=== PATIENT | male | born 1995 | race Caucasian/White ===

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

== ENCOUNTER 2017-08-18 00:25 | Emergency (ER) | payer BC, OTHER ==
[~2017-08-18] VITALS: Ht 185.4 cm; Wt 64.1 kg
[~2017-08-18 00:25] MED LIST: IBUP-1050 PO
[2017-08-18 00:26] VITALS: Ht 185.4 cm; Wt 64.1 kg
[2017-08-18 00:35] VITALS: TEMP 36.6
[2017-08-18] MEDS ORDERED: ONDANSETRON INJ 2 MG/ML 2 ML VIAL IV STA (00:38)
[2017-08-18] MEDS ORDERED: SODIUM CHLORIDE 0.9% 1000ML 1,000 ML IV ONE ×2 (00:45)
[2017-08-18 00:51] LABS: BASO % 0.1 %; BASO ABS # 0.01 K/uL (0-0.2); EOS % 0.1 %; EOS ABS # 0.01 K/uL (0-0.5); HEMATOCRIT 44.8 % (42-52); HEMOGLOBIN 16.8 g/dL (14.0-18.0); IG# 0.07 K/uL (0.00-0.02); LYMPH % 5.5 %; LYMPH ABS # 1.03 K/uL (1.2-3.4); MEAN CELL VOLUME 86.7 fL (80-100); MEAN CORPUSCULAR HEMOGLOBIN 32.5 pg (25-34); MEAN CORPUSCULAR HGB CONC 37.5 g/dl (32-36); MEAN PLATELET VOLUME 10.9 fL (7.4-10.4); MONO % 5.1 %; MONO ABS # 0.97 K/uL (0.11-0.59); NEUT % 88.8 %; NEUT ABS # 16.79 K/uL (1.4-6.5); PLATELET COUNT 200 K/uL (130-400); RED CELL DISTRIBUTION WIDTH CV 12.6 % (11.5-14.5); RED CELL DISTRIBUTION WIDTH SD 40.4 fL (36.4-46.3); WHITE BLOOD COUNT 18.88 K/uL (4.8-10.8)
[2017-08-18 01:15] LABS: ALBUMIN 4.6 gm/dl (3.4-5.0); CALCIUM 9.9 mg/dl (8.5-10.1); CREATININE 1.01 mg/dl (0.60-1.40); POTASSIUM 3.2 mmol/L (3.5-5.1)
[2017-08-18 01:16] LABS: TOTAL PROTEIN 8.2 gm/dl (6.4-8.2)
[2017-08-18] MEDS ORDERED: ACETAMINOPHEN 1000 MG/100 ML IV IV ONE (01:27)
[2017-08-18] MEDS ORDERED: ACETAMINOPHEN IV 1,000 MG in EMPTY BAG 0 ML IV ONE (01:30)
[2017-08-18] MEDS ORDERED: ONDANSETRON HOME PACK 4MG OD TAB PO ONE (03:30)
[2017-08-18 03:32] VITALS: BP 145/71; PULSE 93; O2SAT 97
--- NOTE | 2017-08-18 06:44 | DIAGNOSTIC IMAGING REPORT ---
ABDOMEN 2VIEW W/PA CHEST RTN CLINICAL HISTORY: Nausea, vomiting, abdominal cramping. COMPARISON STUDY: No previous studies for comparison. FINDINGS: The erect chest reveals no evidence of free air. There is no evidence of focal pulmonary consolidation.] Erect and supine views of the abdomen reveal no abnormally dilated loops of large or small bowel. There are no transition zone to indicate bowel obstruction. There is a punctate calcification projected of the left kidney suspicious for a calculus. IMPRESSION: 1. No evidence of bowel obstruction. No evidence of free air 2. Suspected left-sided nephrolithiasis Electronically signed by: Lito Lange M.D. 08/18/2017 6:43 AM Dictated Date/Time: 08/18/2017 6:42 AM
--- NOTE | 2017-08-18 23:12 | EMERGENCY ROOM VISIT NOTE ---
History First contact with patient: 00:32 Chief Complaint: ABDOMINAL PAIN Stated Complaint: VOMITING,STOMACH PAIN Nursing Triage Summary: diffuse abd pain and vomiting x 2 hours. History of Present Illness The patient is a 22 year old male who presents to the Emergency Room with complaints of nausea, vomiting, and abdominal cramping that began 2 hours ago. The patient states that he ate pizza tonight for dinner just before the episode began. He initially had frequent emesis, but now it is watery. He is not having diarrhea. His abdominal pain worsens just before vomiting. The patient has not had fever or chills. No recent travel history. No known exposure to disease. He rates his discomfort in 12/09. Review of Systems More than 10 systems were reviewed and otherwise negative with the exception of history of present illness. Past Medical/Surgical History Medical Problems: (1) No Known Active Medical Problems Family History No pertinent family history Social History Smoking Status: Never Smoker Housing Status: lives with family Occupation Status: student Current/Historical Medications No Active Prescriptions or Reported Meds Physical Exam Vital Signs Date Time Temp Pulse Resp B/P (MAP) Pulse Ox O2 Delivery O2 Flow Rate FiO2 08/18/17 03:32 93 16 145/71 97 Room Air 08/18/17 01:20 48 16 135/81 99 Room Air 08/18/17 00:35 36.6 08/18/17 00:26 86 18 135/80 99 Room Air Physical Exam VITALS: Vitals are noted on the nurse's note and reviewed by myself. Vital signs stable. GENERAL: White male who appears pale and is actively vomiting on my arrival to the room MOUTH: Mucous membranes moist. Tonsils are not enlarged. Pharynx without erythema, blood, or exudate. Uvula midline. Airway patent. NECK: Supple without nuchal rigidity. No lymphadenopathy. No thyromegaly. Cervical spine is nontender. HEART: Regular rate and rhythm without murmurs gallops or rubs. LUNGS: Clear to auscultation bilaterally without wheezes, rales or rhonchi. No retractions or accessory muscle use. ABDOMEN: Positive normal bowel sounds x 4. Soft, nontender, without masses or organomegaly. No guarding or rebound tenderness. Medical Decision & Procedures ER Provider Diagnostic Interpretation: ABDOMEN 2VIEW W/PA CHEST RTN CLINICAL HISTORY: Nausea, vomiting, abdominal cramping. COMPARISON STUDY: No previous studies for comparison. FINDINGS: The erect chest reveals no evidence of free air. There is no evidence of focal pulmonary consolidation.] Erect and supine views of the abdomen reveal no abnormally dilated loops of large or small bowel. There are no transition zone to indicate bowel obstruction. There is a punctate calcification projected of the left kidney suspicious for a calculus. IMPRESSION: 1. No evidence of bowel obstruction. No evidence of free air 2. Suspected left-sided nephrolithiasis Laboratory Results 08/18/17 00:40 Red Blood Count 5.17, Mean Corpuscular Volume 86.7, Mean Corpuscular Hemoglobin 32.5, Mean Corpuscular Hemoglobin Concent 37.5, Mean Platelet Volume 10.9, Neutrophils (%) (Auto) 88.8, Lymphocytes (%) (Auto) 5.5, Monocytes (%) (Auto) 5.1, Eosinophils (%) (Auto) 0.1, Basophils (%) (Auto) 0.1, Neutrophils # (Auto) 16.79, Lymphocytes # (Auto) 1.03, Monocytes # (Auto) 0.97, Eosinophils # (Auto) 0.01, Basophils # (Auto) 0.01 08/18/17 00:40 Test 08/18/17 00:40 08/18/17 01:56 White Blood Count 18.88 K/uL (4.8-10.8) Red Blood Count 5.17 M/uL (4.7-6.1) Hemoglobin 16.8 g/dL (14.0-18.0) Hematocrit 44.8 % (42-52) Mean Corpuscular Volume 86.7 fL (80-100) Mean Corpuscular Hemoglobin 32.5 pg (25-34) Mean Corpuscular Hemoglobin Concent 37.5 g/dl (32-36) Platelet Count 200 K/uL (130-400) Mean Platelet Volume 10.9 fL (7.4-10.4) Neutrophils (%) (Auto) 88.8 % Lymphocytes (%) (Auto) 5.5 % Monocytes (%) (Auto) 5.1 % Eosinophils (%) (Auto) 0.1 % Basophils (%) (Auto) 0.1 % Neutrophils # (Auto) 16.79 K/uL (1.4-6.5) Lymphocytes # (Auto) 1.03 K/uL (1.2-3.4) Monocytes # (Auto) 0.97 K/uL (0.11-0.59) Eosinophils # (Auto) 0.01 K/uL (0-0.5) Basophils # (Auto) 0.01 K/uL (0-0.2) RDW Standard Deviation 40.4 fL (36.4-46.3) RDW Coefficient of Variation 12.6 % (11.5-14.5) Immature Granulocyte % (Auto) 0.4 % Immature Granulocyte # (Auto) 0.07 K/uL (0.00-0.02) Anion Gap 9.0 mmol/L (3-11) Est Creatinine Clear Calc Drug Dose 105.8 ml/min Estimated GFR () 123.5 Estimated GFR (Non- 106.6 BUN/Creatinine Ratio 13.8 (10-20) Calcium Level 9.9 mg/dl (8.5-10.1) Total Bilirubin 2.2 mg/dl (0.2-1) Aspartate Amino Transf (AST/SGOT) 18 U/L (15-37) Alanine Aminotransferase (ALT/SGPT) 28 U/L (12-78) Alkaline Phosphatase 81 U/L (45-117) Total Protein 8.2 gm/dl (6.4-8.2) Albumin 4.6 gm/dl (3.4-5.0) Globulin 3.6 gm/dl (2.5-4.0) Albumin/Globulin Ratio 1.3 (0.9-2) Lipase 102 U/L (73-393) Urine Color DK YELLOW Urine Appearance CLEAR (CLEAR) Urine pH 6.0 (4.5-7.5) Urine Specific [place] 1.026 (1.000-1.030) Urine Protein NEG (NEG) Urine Glucose (UA) NEG (NEG) Urine Ketones 4+ (NEG) Urine Occult Blood NEG (NEG) Urine Nitrite NEG (NEG) Urine Bilirubin NEG (NEG) Urine Urobilinogen NEG (NEG) Urine Leukocyte Esterase NEG (NEG) Medications Administered Medications (Trade) Dose Ordered Sig/Luis Route Start Time Stop Time Status Last Admin Dose Admin Sodium Chloride 1,000 ml @ 999 mls/hr Q1H1M ONCE IV 08/18/17 00:45 08/18/17 01:45 DC 4/19/18 00:50 999 MLS/HR Sodium Chloride 1,000 ml @ 999 mls/hr Q1H1M ONCE IV 08/18/17 00:45 08/18/17 01:45 DC 08/18/17 00:51 999 MLS/HR Ondansetron HCl (Zofran Inj) 8 mg NOW STAT IV 08/18/17 00:38 08/18/17 00:40 DC 08/18/17 00:50 8 MG Acetaminophen (Ofirmev Iv) 1,000 mg STK-MED ONCE IV 08/18/17 01:27 08/18/17 01:28 DC 08/18/17 01:31 1,000 MG Ondansetron HCl (ZOFRAN ODT 4MG Home Pack) 1 homepack UD ONCE PO 08/18/17 03:30 08/18/17 03:31 DC 08/18/17 03:42 1 HOMEPACK ED Course Physical exam and history were performed. Nursing notes, EMR, and Medication List were personally reviewed. Patient appears to have nausea and vomiting for the past 2 hours after eating dinner. The patient was actively vomiting upon my arrival to the room. IV access was established and labs were obtained. He was hydrated with 2 L normal saline and given 8 mg IV Zofran. Abdominal films were gathered. The patient's blood work is as above and was reviewed. He does have an elevated white blood cell count of over 18,000 which is felt to be from his vomiting. He does not have a significant anemia or gross electrolyte imbalance. Transaminases are not diagnostic. X-ray was reviewed by myself and radiology as showing no significant acute process. On reevaluation after a few hours of stay here in the ER the patient looked significantly improved. The color of his skin had returned and he was able to tolerate ice chips. He was tired and reported feeling significantly improved. Overall the patient does seems well for discharge home. I suspect his symptoms are likely viral or foodborne in nature. He will be given a home pack of Zofran as well as conservative care measures. He was asked to follow with his PCP with any ongoing or persisting symptoms, and was invited back to the ER anytime. The chart was completed utilizing [employer] Voice Recognition Software. Grammatical errors, random word insertions, pronoun errors, and incomplete sentences are an occasional consequence of this system due to software limitations, ambient noise, and hardware issues. Any formal questions or concerns about the content, text, or information contained within the body of this dictation should be directly addressed to the provider for clarification. . Medical Decision Differential diagnosis: Etiologies such as gastroenteritis, food borne illness, infections, appendicitis , diverticulitis, inflammatory bowel disease, obstruction, GI bleed, biliary pathology, as well as others were entertained. Impression Primary Impression: Nausea and vomiting Departure Information Dispostion Home / Self-Care Condition GOOD Prescriptions No Active Prescriptions or Reported Meds Forms HOME CARE DOCUMENTATION FORM, IMPORTANT VISIT INFORMATION Patient Instructions [facility], ED Diet [place] Additional Instructions You were seen and evaluated today on an emergency basis only. This is not a substitute for, or an effort to provide, complete comprehensive medical care. It is not possible to recognize and treat all injuries or illnesses in a single emergency department visit. For this reason it is recommended that you followup with your primary care physician next week with any ongoing or persisting symptoms. Take Zofran 4 mg ODT every 6 hours as needed for nausea or vomiting. Drink plenty of fluids and remain well-hydrated. You are welcome to return to the emergency department anytime with new, worsening, or concerning symptoms.
== END 2017-08-18 03:48 | disposition home or self-care (01) ==
LOC: C.EDB 00:25
DX: R11.2 Nausea with vomiting, unspecified (principal)

== ENCOUNTER 2022-12-13 03:36 | Observation (INO) ==
[2022-12-13] MEDS ORDERED: ONDANSETRON INJ 2 MG/ML 2 ML VIAL IV STA (03:46)
[2022-12-13] MEDS ORDERED: SODIUM CHLORIDE 0.9% 1000ML 1,000 ML IV STA (03:46)
[2022-12-13] MEDS ORDERED: ACETAMINOPHEN 1,000 MG/100 ML VIAL IV STA (03:51)
--- NOTE | 2022-12-13 03:55 | Emergency Department Note ---
History of Present Illness General Chief complaint: Abdominal Pain Stated complaint: ABDOMINAL PAIN, VOMITING Time Seen by Provider: 12/13/22 03:46 History of Present Illness Maximum Pain Intensity: 7 This 27-year-old male presents the ER complaining of nausea vomiting and abdominal pain for the past day. Patient denies chest pain, dyspnea, flank pain, penile pain, urinary symptoms, diarrhea. No prior abdominal surgeries. Allergies Allergy/AdvReac Type Severity Reaction Status Date / Time No Known Allergies Allergy Unverified 11/13/17 23:51 Past Med/Surg History Social History Smoking Status: Current every day smoker Preferred Language: Mexican Feels Safe at Home: Yes Review of Systems A total of 10 systems reviewed and were otherwise negative Physical Exam Vital Signs Vital Signs - 24 hr 12/13/22 03:43 Temperature 36.7 C Temperature Source Temporal Artery Scan Pulse Rate 51 L Respiratory Rate 16 Respiratory Depth Normal Blood Pressure 140/87 Blood Pressure Mean 104 Pulse Oximetry 100 Oxygen Delivery Method Room Air Sepsis Recent Fever Within 48 Hours No Sepsis New/Unexplained Change in Mental Status N/A Sepsis Action Taken by Nursing No Action Required VITALS: Vitals are noted on the nurse's note and reviewed by myself. Vital signs stable. GENERAL: White male with mother present, in no acute distress, nondiaphoretic, well-developed well-nourished. SKIN: The skin was without rashes, erythema, edema, or bruising. There is no tenting of the skin. Capillary reflex less than 2 seconds. HEAD: Normocephalic atraumatic. EARS: External auditory canals clear, EYES: Pupils equal round and reactive to light and accommodation. Conjunctivae without injection, sclerae without icterus. Extraocular movements intact. NOSE: Patent, turbinates without inflammation or discharge. MOUTH: Mucous membranes moist. Pharynx without erythema or exudate. Uvula midline. Airway patent. Tongue does not deviate. NECK: Supple without nuchal rigidity. No lymphadenopathy. No thyromegaly. Cervical spine is nontender. No JVD. HEART: Regular rate and rhythm LUNGS: Clear to auscultation bilaterally without wheezes, rales or rhonchi. No retractions or accessory muscle use. ABDOMEN: Positive bowel sounds x 4. Normal tympanic percussion. Soft, diffusely tender to palpation, without masses or organomegaly. Martin sign negative. No guarding or rebound tenderness. No CVA tenderness MUSCULOSKELETAL: No muscle atrophy, erythema, or edema noted. NEURO: Patient was alert and oriented to person place and time. Normal sensation to light and sharp touch. No focal neurological deficits. Course Administered Medications Discontinued Medications Sodium Chloride (Nss 1000ml) 1,000 mls @ 999 mls/hr IV .Q1H1M STA Stop: 12/13/22 04:46 Last Infusion: 12/13/22 05:09 Dose: 0 mls/hr Documented By: MARIA ALEJANDRA Admin: 12/13/22 04:04 Dose: 999 mls/hr Documented By: MARIA ALEJANDRA Acetaminophen (Ofirmev) 1,000 mg in 100 mls @ 400 mls/hr IV NOW STA Stop: 12/13/22 04:05 Last Infusion: 12/13/22 04:28 Dose: 0 mls/hr Documented By: MARIA ALEJANDRA Admin: 12/13/22 04:04 Dose: 400 mls/hr Documented By: MARIA ALEJANDRA Ioversol (Optiray 320 100ml) 100 ml IV ONCE ONE Stop: 12/13/22 04:44 Last Admin: 12/13/22 04:44 Dose: 93 ml Documented By: JULIA Ondansetron HCl (Ondansetron Inj 2 Mg/Ml 2 Ml Vial) 4 mg IV NOW STA Stop: 12/13/22 03:47 Last Admin: 12/13/22 04:04 Dose: 4 mg Documented By: MARIA ALEJANDRA Medical Decision Making Medical Records Attestation: I reviewed the patient's medical records. Home Medications Current Medication List: was personally reviewed by me Laboratory Data Attestation: I reviewed the patient's lab results. 12/13/22 03:58 12/13/22 03:58 Lab Results 12/13/22 12/13/22 12/13/22 Range/Units 03:58 03:58 04:12 WBC 18.67 H (4.8-10.8) K/ul RBC 5.10 (4.70-6.10) M/uL Hgb 16.2 (14.0-18.0) g/dl POC Hgb 15.6 (14.0-18.0) g/dl Hct 44.8 (42.0-52.0) % POC Hct 46 (42-52) % MCV 87.8 (80.0-100.0) fL MCH 31.8 (25.0-34.0) pg MCHC 36.2 H (32.0-36.0) g/dL RDW Std Deviation 38.9 (36.4-46.3) fL RDW Coeff of Ruby 12.0 (11.5-14.5) % Plt Count 178 (130-400) K/uL MPV 10.9 (9.4-12.4) fL Immature Gran % (Auto) 0.7 % Neut % (Auto) 84.9 % Lymph % (Auto) 7.0 % Cocke % (Auto) 7.2 % Eos % (Auto) 0.1 % Baso % (Auto) 0.1 % Neut # (Auto) 15.86 H (1.40-6.50) K/uL Lymph # (Auto) 1.30 (1.2-3.4) K/uL Cocke # (Auto) 1.34 H (0.11-0.59) K/uL Eos # (Auto) 0.02 (0-0.50) K/uL Baso # (Auto) 0.02 (0-0.2) K/uL Immature Gran # (Auto) 0.13 (0.01-0.20) K/uL POC Sodium 138 (135-144) mmol/L Sodium 137 (136-145) mmol/L POC Potassium 3.8 (3.3-5.0) mmol/L Potassium 3.7 (3.5-5.1) mmol/L POC Chloride 100 L (101-112) mmol/L Chloride 101 (98-107) mmol/L Carbon Dioxide 26 (21-32) mmol/L POC Total CO2 24 (24-31) mmol/L Anion Gap 10 (3-11) POC Anion Gap 20.0 (16-25) mmol/L POC BUN 14 (7-18) mg/dl BUN 13 (6-23) mg/dl Creatinine 0.88 (0.6-1.4) mg/dl POC Creatinine 0.7 (0.6-1.3) mg/dl Est Cr Clr Drug Dosing Not Reportable Est GFR ( Amer) 138.4 ml/min Est GFR (Non-Af Amer) 119.4 ml/min BUN/Creatinine Ratio 14.8 (10-20) Glucose 170 H (70-99(Fasting)) mg/dl POC Glucose (other) 171 H (70-99) mg/dl Calcium 10.0 (8.6-10.3) mg/dl POC Ioniz Calcium [place]ton 1.19 (1.12-1.32) mmol/l Total Bilirubin 1.8 H (0.2-1.0) mg/dl AST 20 (13-39) U/L ALT 21 (7-52) U/L Alkaline Phosphatase 59 (34-104) U/L Total Protein 7.1 (6.0-8.3) gm/dl Albumin 4.4 (3.4-5.0) gm/dl Globulin 2.7 (2.5-4.0) gm/dl Albumin/Globulin Ratio 1.6 (0.9-2) Lipase 12 (11-82) U/L Imaging Data Attestation: I personally reviewed and interpreted this imaging study as follows: Radiologist's Impression: Abdomen/Pelvis CT 12/13/22 03:46 CR Exam(s): CT ABDOMEN + PELVIS With Contrast IV Amt: 93 ML OPTIRAY 320 EXAM: CT Abdomen and Pelvis With Intravenous Contrast CLINICAL HISTORY: Reason for exam: lower abd pain. TECHNIQUE: Axial computed tomography images of the abdomen and pelvis with intravenous contrast. CTDI is 8.39 mGy and DLP is 417.99 mGy-cm. Automated exposure control was utilized for the study. A dose lowering technique was utilized adhering to the principles of ALARA. CONTRAST: Patient received 93 ML OPTIRAY 320 of IV contrast COMPARISON: No relevant prior studies available. FINDINGS: ABDOMEN: Liver: Periportal edema within the liver. Gallbladder and bile ducts: Unremarkable. Pancreas: Unremarkable. Spleen: Unremarkable. Adrenals: Unremarkable. Kidneys and ureters: Unremarkable. No obstructing stones. No hydronephrosis. Stomach and bowel: Mucosal thickening within the pelvic small bowel likely reactive. PELVIS: Appendix: Acute appendicitis. The appendix is dilated up to 1.3 cm with mucosal thickening and hyperemia. Periappendiceal fat stranding present. No perforation or abscess. Bladder: Unremarkable. Reproductive: Unremarkable as visualized. ABDOMEN and PELVIS: Intraperitoneal space: Small amount of free fluid within the pelvis. No abscess. No free air. Bones/joints: No acute fracture. Soft tissues: Unremarkable. Vasculature: Unremarkable. Lymph nodes: Unremarkable. IMPRESSION: 1. Acute appendicitis. No perforation or abscess. 2. Mucosal thickening within the pelvic small bowel likely reactive. 3. Periportal edema within the liver. Most frequently seen in the setting of aggressive IV rehydration. Communications: Verify Receipt Electronically signed by: Chucky Saldaña MD 12/13/22 05:14 AM MDM Narrative Prior records/ancillary studies reviewed. Triage Nursing notes reviewed. Additional history obtained from the family. The patient's history was concerning for nausea, vomiting, and abdominal pain. Differential diagnosis: Etiologies such as gastroenteritis, food borne illness, infections, appendicitis, diverticulitis, inflammatory bowel disease, obstruction, GI bleed, biliary pathology, as well as others were entertained. Physical examination findings: As above. Abdominal examination revealed diffuse tenderness. Vital signs reviewed and revealed stable. ER treatment provided: IV hydration 1 L NSS. Zofran and Tylenol ordered patient was given Zosyn for appendicitis On reassessment the patient felt better. Patient was tolerating p.o. intake. Diagnostics interpretation by me: The labs Independently Interpreted by myself revealed leukocytosis that could be related to vomiting Mild hyperglycemia without DKA Imaging studies: CT concerning for acute appendicitis per my independent interpretation Consultation: A consultation was placed with the surgical provider Guilherme. The case was discussed and diagnostics were reviewed. The patient was evaluated in the ER for further treatment. This appears to be consistent with acute appendicitis. Labs and diagnostics were independently interpreted by myself. Radiology read the CAT scan. Patient was started on antibiotics. Surgery was consulted. Patient was admitted to the surgical service in stable condition and patient was agreeable. By the evaluation outlined above emergent etiologies such as diverticulitis, obstruction, cardiac sources, mesenteric ischemia, aortic pathology, inflammato ry bowel disease, renal colic, PUD, biliary pathology, UTI, as well as others were deemed relatively unlikely. The pt informed about the findings as listed above. All questions were answered and pleased with the treatment. The chart was completed utilizing [employer] voice recognition software. Grammatical errors, random word insertions, pronoun errors, and incomplete sentences are an occassional consequence of this system due to software limitations, ambient noise, and hardware issues. Any formal questions or concerns about the content, text, or information contained within the body of this dictation should be directly addressed to the physician assistant surveyor for clarification. Impression & Plan Acute appendicitis Discharge Plan Visit Data Chief Complaint: Abdominal Pain Stated Complaint: ABDOMINAL PAIN, VOMITING ED Provider: Ofelia Velarde ED Midlevel Provider: Ros Diaz Discharge Problem: Acute appendicitis Patient Disposition: Being Evaluated by Surgeon Condition: Good Forms Stand Alone Forms: [facility] Referrals Referrals: PCP,NO [Primary Care Provider] - Acute appendicitis Qualifiers: Acute appendicitis type: with localized peritonitis Appendicitis gangrene presence: unspecified whether gangrene present Appendicitis perforation presence: without perforation Appendicitis abscess presence: without abscess Qualified Code(s): K35.30 - Acute appendicitis with localized peritonitis, without perforation or gangrene
[2022-12-13 04:14] LABS: Basophils # (auto) 0.02 K/uL (0-0.2); Basophils % (auto) 0.1 %; Eosinophils # (auto) 0.02 K/uL (0-0.50); Eosinophils % (auto) 0.1 %; Hematocrit (blood only) 44.8 % (42.0-52.0); Hemoglobin 16.2 g/dl (14.0-18.0); Immature Granulocytes # (auto) 0.13 K/uL (0.01-0.20); Immature Granulocytes % (auto) 0.7 %; Mean Corpuscular Hemoglobin 31.8 pg (25.0-34.0); Mean Corpuscular Hgb Conc 36.2 g/dL (32.0-36.0); Mean Corpuscular Volume 87.8 fL (80.0-100.0); Mean Platelet Volume 10.9 fL (9.4-12.4); Monocytes # (auto) 1.34 K/uL (0.11-0.59); Monocytes % (auto) 7.2 %; Neutrophils # (auto) 15.86 K/uL (1.40-6.50); Neutrophils % (auto) 84.9 %; Platelet Count 178 K/uL (130-400); RDW Standard Deviation 38.9 fL (36.4-46.3); White Blood Count 18.67 K/ul (4.8-10.8)
[2022-12-13 04:25] LABS: iSTAT Creatinine 0.7 mg/dl (0.6-1.3); iSTAT Hemoglobin 15.6 g/dl (14.0-18.0); iSTAT Ionized Calcium 1.19 mmol/l (1.12-1.32); iSTAT Potassium 3.8 mmol/L (3.3-5.0)
[2022-12-13 04:29] LABS: Alanine Aminotransferase 21 U/L (7-52); Albumin Globulin Ratio 1.6 (0.9-2); Albumin Level 4.4 gm/dl (3.4-5.0); Alkaline Phosphatase 59 U/L (34-104); Anion Gap 10 (3-11); Aspartate Aminotransferase 20 U/L (13-39); BUN Creatinine Ratio 14.8 (10-20); Bilirubin,Total 1.8 mg/dl (0.2-1.0); Blood Urea Nitrogen 13 mg/dl (6-23); Carbon Dioxide 26 mmol/L (21-32); Chloride 101 mmol/L (98-107); Est GFR (African American) 138.4 ml/min; Est GFR (Non-African American) 119.4 ml/min; Globulin 2.7 gm/dl (2.5-4.0); Glucose 170 mg/dl (70-99(Fasting)); Lipase 12 U/L (11-82); Potassium 3.7 mmol/L (3.5-5.1); Sodium 137 mmol/L (136-145); Total Protein 7.1 gm/dl (6.0-8.3)
[2022-12-13] MEDS ORDERED: OPTIRAY 320 100ml IV ONE (04:43)
[2022-12-13] MEDS ORDERED: PIPERACILLIN/TAZOBACTAM 4.5 GM/120 ML BAG IV ONE (05:14)
--- NOTE | 2022-12-13 05:15 | CT Scan Report ---
Exam(s): CT ABDOMEN + PELVIS With Contrast IV Amt: 93 ML OPTIRAY 320 EXAM: CT Abdomen and Pelvis With Intravenous Contrast CLINICAL HISTORY: Reason for exam: lower abd pain. TECHNIQUE: Axial computed tomography images of the abdomen and pelvis with intravenous contrast. CTDI is 8.39 mGy and DLP is 417.99 mGy-cm. Automated exposure control was utilized for the study. A dose lowering technique was utilized adhering to the principles of ALARA. CONTRAST: Patient received 93 ML OPTIRAY 320 of IV contrast COMPARISON: No relevant prior studies available. FINDINGS: ABDOMEN: Liver: Periportal edema within the liver. Gallbladder and bile ducts: Unremarkable. Pancreas: Unremarkable. Spleen: Unremarkable. Adrenals: Unremarkable. Kidneys and ureters: Unremarkable. No obstructing stones. No hydronephrosis. Stomach and bowel: Mucosal thickening within the pelvic small bowel likely reactive. PELVIS: Appendix: Acute appendicitis. The appendix is dilated up to 1.3 cm with mucosal thickening and hyperemia. Periappendiceal fat stranding present. No perforation or abscess. Bladder: Unremarkable. Reproductive: Unremarkable as visualized. ABDOMEN and PELVIS: Intraperitoneal space: Small amount of free fluid within the pelvis. No abscess. No free air. Bones/joints: No acute fracture. Soft tissues: Unremarkable. Vasculature: Unremarkable. Lymph nodes: Unremarkable. IMPRESSION: 1. Acute appendicitis. No perforation or abscess. 2. Mucosal thickening within the pelvic small bowel likely reactive. 3. Periportal edema within the liver. Most frequently seen in the setting of aggressive IV rehydration. Communications: Verify Receipt Electronically signed by: Chucky Saldaña MD 12/13/22 05:14 AM
[2022-12-13 05:23] LABS: Appearance Urine Clear (Clear); Bilirubin Urine Negative (Negative); Blood Urine Negative (Negative); Color Urine Yellow; Glucose Urine UA Negative (Negative); Ketones Urine Trace (Negative); Leukocyte Esterase Urine Negative (Negative); Nitrite Urine Negative (Negative); Protein Urine Negative (Negative); Specific Gravity Urine > 1.045 (1.000-1.030); Urobilinogen Urine Negative (Negative)
[2022-12-13] MEDS ORDERED: ONDANSETRON INJ 2 MG/ML 2 ML VIAL IV PRN (05:28)
[2022-12-13] MEDS ORDERED: ACETAMINOPHEN 1,000 MG/100 ML VIAL IV PRN (05:28)
[2022-12-13] MEDS ORDERED: MoRPHine SULFATE 4 MG/ML 1 ML CARP\\VIAL IV PRN ×2 (05:28→13:55)
[2022-12-13] MEDS: SODIUM CHLORIDE 0.9% 1000ML 1,000 ML IV SCH ×2 (05:42→17:42)
--- NOTE | 2022-12-13 05:44 | History & Physical Report ---
Date of Service December 13, 2022 Assessment & Plan (1) Acute appendicitis: Plan: Due to the patient's clinical presentation, labs, and findings on imaging she will be admitted to the hospital we will proceed as follows: Analgesics will be provided Antiemetics we provided We will initiate antibiotics. The treating clinician emergency department has already ordered Zosyn and this will continue. We will hydrate the patient with intravenous fluids We will keep the patient n.p.o. for the present time We tentatively planning on having the patient undergo an appendectomy with Dr. Anand today. I discussed the risks, benefits, alternatives, and expected postop course with the patient and his mother who was present at bedside. They wish to proceed. Additional recommendations be forthcoming based on operative findings and patient's recovery thereafter SCDs were used for DVT prevention, no chemical means due to planned surgery As above. Patient seen. Discussed findings as well as options and risks. We discussed the risks of surgery which include bleeding, infection, injury to another organ, DVT, PE, RI, CVA etc. Following this I answered their questions. We will proceed this morning with laparoscopic appendectomy. The patient be a level 1 full code History of Present Illness Chief Complaint: Abdominal pain Primary Care Provider: NO PCP This is a 27-year-old male who presented to the emergency department secondary to abdominal pain for the past 24 hours. The patient notes that the pain was initially located in the periumbilical region and has since shifted to the lower abdomen greatest in the right lower quadrant. He notes that the pain was markedly worse in the car ride to the hospital and seems to be improved when he would take a hot shower. With the pain he has had associated nausea and vomiting. He has not had any fevers but did have some sweats. He has never had prior abdominal surgery. He notes that he has not had any meaningful oral oral intake in approximate 24 hours. He did state that he tried to drink some Gatorade on the ride to the hospital but immediately vomited this up. He has also had some oral contrast with his CAT scan. The patient had a CT scan of the abdomen and pelvis. This study showed that the patient's appendix was dilated up to 1.3 cm with some mucosal thickening and hyperemia. There is periappendiceal stranding present but no perforation or abscess. This is felt to represent an acute appendicitis. CBC revealed white blood cell count was elevated 18.6. Hemoglobin, hematocrit, platelet count were normal. Chemistry profile showed sodium, potassium, BUN, creatinine were normal. Urinalysis was not indicative of infection. At the time of my interview the patient was resting comfortably in bed he was in no distress. Concerning past medical history he denies any medical problems Concerning past surgical history he has had his wisdom teeth removed Concerning allergies he denies any allergies Concerning social history the patient says that he vapes almost daily Concerning family history he denies family history of premature coronary artery disease Allergies Allergy/AdvReac Type Severity Reaction Status Date / Time No Known Allergies Allergy Unverified 11/13/17 23:51 Past Med/Surg History Social History Smoking Status: Current every day smoker Preferred Language: Ukrainian Feels Safe at Home: Yes Review of Systems Constitutional: no fever and no chills Ear, Nose, Mouth, Throat: no ear pain Respiratory: no cough and no dyspnea Cardiovascular: no chest pain Gastrointestinal: as per Subjective / HPI Genitourinary: no dysuria Musculoskeletal: no back pain Integumentary: no rash Neurologic: no localized weakness Physical Exam Constitutional: WD/WN, vitals as above Eyes: no conjunctival abnormality ENMT: Ears: no hearing impairment and no external ear abnormality Mouth: no oropharynx abnormality Neck: trachea midline Respiratory: normal respiratory effort; no respiratory distress and no labored breathing Cardiovascular: Rate/Rhythm: regular rate and regular rhythm Gastrointestinal (Abdomen): Abdomen is soft and nondistended. It is nonrigid. The patient had pain with palpation greatest in the right lower quadrant McBurney's point. There is some slight rebound tenderness Musculoskeletal: No calf tenderness Skin: no rashes Neurologic: moves all extremities Psychiatric: A+Ox3, euthymic affect Results & Data Results & Data Vital Signs (Past 12 Hours) Vital Signs Temp Pulse Resp BP Pulse Ox O2 Del Method 12/13/22 03:43 36.7 C 51 L 16 140/87 100 Room Air PG Care Time/CCT Total # of Minutes Spent Total Time Spent with Patient: Total time spent is greater than 50% in coordination of care (as documented) at patient's floor/unit and/or counseling patient: Coding Level of Care Code 99789 INT INP/OBS CARE 3/75MIN Diagnoses Acute appendicitis K35.30 Acute appendicitis type: with localized peritonitis Appendicitis abscess presence: without abscess Appendicitis gangrene presence: unspecified whether gangrene present Appendicitis perforation presence: without perforation (1) Acute appendicitis Acute appendicitis type: with localized peritonitis Appendicitis abscess presence: without abscess Appendicitis gangrene presence: unspecified whether gangrene present Appendicitis perforation presence: without perforation Qualified Code(s): K35.30 - Acute appendicitis with localized peritonitis, without perforation or gangrene
[2022-12-13] MEDS ORDERED: fentaNYL citrate PF 100 MCG/2 ML VIAL ONE ×2 (09:59→11:36)
[2022-12-13] MEDS ORDERED: PROPOFOL IV EMULSION 10 MG/ML 20 ML VIAL IV ONE (09:59)
[2022-12-13] MEDS ORDERED: MIDAZOLAM HCL 1 MG/ML 2ML VIAL ONE (09:59)
[2022-12-13] MEDS ORDERED: ROCURONIUM BROMIDE 10 MG/ML 5 ML VIAL IV ONE (09:59)
[2022-12-13] MEDS ORDERED: LIDOCAINE 2% 2 ML VIAL/AMP(20MG/ML) INFIL ONE (09:59)
[2022-12-13] MEDS ORDERED: GLYCOPYRROLATE 0.2 MG/ML VIAL ONE (09:59)
[2022-12-13] MEDS ORDERED: ONDANSETRON INJ 2 MG/ML 2 ML VIAL ONE (09:59)
[2022-12-13] MEDS ORDERED: NEOSTIGMINE METHYLSULFATE 1 MG/ML 10ML VIAL ONE (09:59)
[2022-12-13] MEDS ORDERED: BUPIVACAINE/EPINEPHRINE 0.5% MPF 1:200,000 30 ML VIAL ONE (10:37)
--- NOTE | 2022-12-13 11:03 | Anesthesiology Consultation ---
Date of Service December 13, 2022 History Surgery Operation Date: 12/13/22 07:50 Proposed Procedures p Laparoscopic Appendectomy - Sebas Anand, Height/Weight Height: 6 ft 2 in Weight: 65 kg Allergies Allergy/AdvReac Type Severity Reaction Status Date / Time No Known Allergies Allergy Unverified 11/13/17 23:51 Medications Home Medications Medication Instructions Recorded Confirmed Last Taken No Known Home Medications 12/13/22 12/13/22 Unknown Active Medications Generic Name Dose Route Start Last Admin Trade Name Marta PRN Reason Stop Dose Admin Sodium Chloride 1,000 mls @ 125 mls/hr 12/13/22 05:30 12/13/22 05:42 Nss 1000ml IV 01/12/23 05:29 125 mls/hr .Q8H JEREMIAH Administration NPO Date Last Intake of Fluids: 12/13/22 Time Last Intake of Fluids: 02:30 Date Last Intake of Solids: 12/12/22 Time Last Intake of Solids: 16:00 Social History Smoking Status: Current every day smoker Physical Exam Vital Signs Last Vital Signs Temp 37.1 C 12/13/22 09:41 Pulse 83 12/13/22 09:41 Resp 18 12/13/22 09:41 BP 108/56 L 12/13/22 09:41 Pulse Ox 98 12/13/22 09:41 O2 Del Method Room Air 12/13/22 09:41 Testing Laboratory Results 12/13/22 03:58 12/13/22 03:58 Urine Color Yellow 12/13/22 00:03 Urine Appearance Clear (Clear) 12/13/22 00:03 Urine pH 5.0 (4.5-7.5) 12/13/22 00:03 Ur Specific [place] > 1.045 (1.000-1.030) H 12/13/22 00:03 Urine Protein Negative (Negative) 12/13/22 00:03 Urine Glucose (UA) Negative (Negative) 12/13/22 00:03 Urine Ketones Trace (Negative) H 12/13/22 00:03 Urine Nitrite Negative (Negative) 12/13/22 00:03 Ur Leukocyte Esterase Negative (Negative) 12/13/22 00:03 12/13/22 04:12 POC Glucose (other) 171 H
[2022-12-13] MEDS ORDERED: KETOROLAC 30 MG/ML VIAL ONE (11:59)
--- NOTE | 2022-12-13 12:13 | Operative Report ---
PG Post Operative Report Pre & Post Diagnosis Operation Date: 12/13/22 07:50 Pre-Op Diagnosis: Acute appendicitis Post-Op Diagnosis: Acute appendicitis I identified the patient and participated in the time-out.: Yes Procedure Operation Date: 12/13/22 07:50 Actual Procedures p Laparoscopic Appendectomy(Not Applicable) - Sebas Anand DO Surgeon Sebas Anand DO Commercial [employer] Appraiser gloria Ribeiro Estimated Blood Loss 25 Findings Consistent with Post-Op Diagnosis Specimens appendix Description of Procedure After informed consent was obtained the patient was taken to the operating room and placed in supine position. After successful intubation a Keyes catheter was placed and the left arm was tucked. I began by making a periumbilical incision with an 11 blade scalpel and carried this down through the soft tissue using electrocautery. The anterior rectus fascia was opened using electrocautery and 2 #0 Vicryl stay sutures were placed. The peritoneum was elevated using hemostats and incised under direct vision using a Metzenbaum scissor. A finger sweep was performed. A 12 mm Gonzales trocar was placed and the abdomen was insufflated to 18 mmHg. A laparoscope was inserted and the abdomen was examined in 360. A suprapubic 5 mm port and a left lower quadrant 12 mm port were placed under direct vision. The patient was air planed to the left as well as placed in a slight Trendelenburg position. We began by looking in the right lower quadrant. We were able to readily identify the appendix and it was grossly inflamed. It had not perforated. There is a small amount of purulent fluid in the right lower quadrant and the pelvis. We immediately irrigated and suctioned this out. I was able to use primarily blunt dissection to pull the appendix away from the right lower quadrant sidewall. Initially I made a small window in the mesentery of the appendix. I was then able to use a ELAINA brown cartridge stapler to transect both the mesentery of the appendix followed by using a purple cartridge 60 mm stapler to transect the appendix itself at its base with the cecum. It was then placed into an Endo Catch bag and removed from the camera port site. We thoroughly irrigated the right lower quadrant as well as the pelvis. There was adequate hemostasis. I ran the small bowel backwards from the terminal ileum for about 6 feet all of which was normal. All the peritoneal surfaces were normal. Small/ large bowel, liver, stomach etc. all appeared grossly normal. We did a final irrigation and then removed all the trochars and desufflated the abdomen. The fascia of the camera port as well as the left lower quadrant were closed using 0 Vicryl in [id number] fashion. Wounds were all irrigated and closed using 4-0 Monocryl. Marcaine was injected around them for postoperative analgesia and skin glue used as a dressing. The patient was awakened extubated and transferred to recovery in stable condition. My physician's autopsy assistant was present through the entire case. She assisted with prepping the patient and helped with exposure for port placement, helped run the camera and helped with fascial/wound closure at the end of the procedure as well as dressing placement. I attest to the content of the Intraoperative Record and any orders documented therein. Any exceptions are noted below. I attest to the content of the Intraoperative Record and any orders documented therein. Any exceptions are noted below.
--- NOTE | 2022-12-13 13:02 | Anesthesiology Progress Note ---
Date of Service December 13, 2022 Anesthesia Post Procedure Vital Signs Vital Signs: Temp Pulse Pulse Pulse Resp BP BP 12/13/22 13:00 36.6 C 78 22 128/68 12/13/22 12:50 87 16 122/72 12/13/22 12:40 74 16 133/63 12/13/22 12:30 78 22 136/65 12/13/22 12:19 36 C L 100 H 16 135/86 12/13/22 09:41 37.1 C 83 18 108/56 L 12/13/22 09:23 12/13/22 08:03 76 18 116/82 12/13/22 06:00 58 L 18 108/76 12/13/22 03:43 36.7 C 51 L 16 140/87 Pulse Ox O2 Del Method 12/13/22 13:00 95 Room Air 12/13/22 12:50 97 Room Air 12/13/22 12:40 97 Room Air 12/13/22 12:30 97 Room Air 12/13/22 12:19 98 Room Air 12/13/22 09:41 98 Room Air 12/13/22 09:23 Room Air 12/13/22 08:03 98 Room Air 12/13/22 06:00 99 Room Air 12/13/22 03:43 100 Room Air Pain Intensity Lower Abdomen: Pain Intensity: 4 Transfer of Care Handoff Completed per policy Notes Mental Status: alert / awake / arousable and participated in evaluation Nausea / Vomiting: adequately controlled Pain: adequately controlled Airway Patency, RR, SpO2: stable & adequate BP & HR: stable & adequate Hydration State: stable & adequate Anesthetic Complications: no major complications apparent and Pt Satisfied with anesthetic care
[2022-12-13] MEDS ORDERED: MoRPHine SULFATE 2 MG/ML CARP IV PRN (13:55)
[2022-12-13] MEDS ORDERED: oxyCODONE HCL IR 5 MG TAB (IMMEDIATE RELEASE) PO PRN ×2 (13:55)
[2022-12-13] MEDS ORDERED: PIPERACILLIN/TAZOBACTAM 4.5 GM in DEXTROSE 5% 100 ML IV SCH (14:00)
[2022-12-13] MEDS: ACETAMINOPHEN 1,000 MG/100 ML VIAL IV SCH ×2 (15:16→21:33)
[2022-12-13] MEDS: LACTATED RINGER'S 1,000 ML IV SCH ×2 (15:17→21:33)
[2022-12-13] MEDS: ceFAZolin 2000MG 2,000 MG/15 ML SYR IV SCH ×2 (16:59→22:16)
[2022-12-13] MEDS: metroNIDAZOLE 500 MG/100 ML BAG IV SCH ×2 (17:07→22:15)
[2022-12-14] MEDS: ACETAMINOPHEN 1,000 MG/100 ML VIAL IV SCH (05:35)
[2022-12-14] MEDS: ceFAZolin 2000MG 2,000 MG/15 ML SYR IV SCH (06:19)
[2022-12-14] MEDS: metroNIDAZOLE 500 MG/100 ML BAG IV SCH (06:20)
--- NOTE | 2022-12-14 07:35 | Surgery Progress Note ---
Date of Service December 14, 2022 Assessment & Plan (1) Acute appendicitis: Plan: POD#1 lap appy CBC pending. vitals are stable and patient afebrile He is tolerating liquids, no n/v Pain is controlled. Incisions c/d/i May adv diet as tolerates Plan on dispo to home today, f/u in clinic with dr. flores in 1-2 weeks Admission and Anticipated Discharge Date Admission Date: December 13, 2022 Subjective Patient reports he had a good night. Tolerating clear liquids no nausea/vomiting. Not much appetite for more, but willing to try some regular food. He is voiding without issues. Pain is controlled. Physical Exam Physical Exam: awake/alert, no distress Gastrointestinal (Abdomen): Inspection/Auscultation: + abdominal surgical incision (c/d/i with skin glue); abdomen not distended Percussion/Palpation: + abdomen tender (expected bryan incisional discomfort) and abdomen soft Results & Data Vital Signs (Past 12 Hours) Vital Signs Temp Pulse Resp BP Pulse Ox O2 Del Method 12/14/22 03:06 36.9 C 56 L 16 115/74 96 Room Air 12/13/22 21:42 36.9 C 50 L 16 103/66 96 Room Air PG Care Time/CCT Total # of Minutes Spent Total Time Spent with Patient: Total time spent is greater than 50% in coordination of care (as documented) at patient's floor/unit and/or counseling patient: Coding Level of Care Code 63382 Post Operative Follow-Up Diagnoses Acute appendicitis K35.30 Acute appendicitis type: with localized peritonitis Appendicitis abscess presence: without abscess Appendicitis gangrene presence: unspecified whether gangrene present Appendicitis perforation presence: without perforation (1) Acute appendicitis Acute appendicitis type: with localized peritonitis Appendicitis abscess presence: without abscess Appendicitis gangrene presence: unspecified whether gangrene present Appendicitis perforation presence: without perforation Qualified Code(s): K35.30 - Acute appendicitis with localized peritonitis, without perforation or gangrene
[2022-12-14 09:45] LABS: Basophils # (auto) 0.01 K/uL (0-0.2); Basophils % (auto) 0.1 %; Eosinophils # (auto) 0.01 K/uL (0-0.50); Eosinophils % (auto) 0.1 %; Hematocrit (blood only) 36.1 % (42.0-52.0); Hemoglobin 12.8 g/dl (14.0-18.0); Immature Granulocytes # (auto) 0.06 K/uL (0.01-0.20); Immature Granulocytes % (auto) 0.6 %; Lymphocytes # (auto) 1.15 K/uL (1.2-3.4); Lymphocytes % (auto) 11.6 %; Mean Corpuscular Hemoglobin 31.4 pg (25.0-34.0); Mean Corpuscular Hgb Conc 35.5 g/dL (32.0-36.0); Mean Corpuscular Volume 88.7 fL (80.0-100.0); Mean Platelet Volume 11.3 fL (9.4-12.4); Monocytes # (auto) 0.77 K/uL (0.11-0.59); Monocytes % (auto) 7.8 %; Neutrophils # (auto) 7.92 K/uL (1.40-6.50); Neutrophils % (auto) 79.8 %; Platelet Count 118 K/uL (130-400); RDW Coefficient of Variation 12.3 % (11.5-14.5); RDW Standard Deviation 39.9 fL (36.4-46.3); Red Blood Count 4.07 M/uL (4.70-6.10); White Blood Count 9.92 K/ul (4.8-10.8)
--- NOTE | 2022-12-15 14:56 | Discharge Summary ---
Date of Service December 14, 2022 Admission HPI Per Admitting Provider This is a 27-year-old male who presented to the emergency department secondary to abdominal pain for the past 24 hours. The patient notes that the pain was initially located in the periumbilical region and has since shifted to the lower abdomen greatest in the right lower quadrant. He notes that the pain was markedly worse in the car ride to the hospital and seems to be improved when he would take a hot shower. With the pain he has had associated nausea and vomiting. He has not had any fevers but did have some sweats. He has never had prior abdominal surgery. He notes that he has not had any meaningful oral oral intake in approximate 24 hours. He did state that he tried to drink some Gatorade on the ride to the hospital but immediately vomited this up. He has also had some oral contrast with his CAT scan. The patient had a CT scan of the abdomen and pelvis. This study showed that the patient's appendix was dilated up to 1.3 cm with some mucosal thickening and hyperemia. There is periappendiceal stranding present but no perforation or abscess. This is felt to represent an acute appendicitis. CBC revealed white blood cell count was elevated 18.6. Hemoglobin, hematocrit, platelet count were normal. Chemistry profile showed sodium, potassium, BUN, creatinine were normal. Urinalysis was not indicative of infection. At the time of my interview the patient was resting comfortably in bed he was in no distress. Concerning past medical history he denies any medical problems Concerning past surgical history he has had his wisdom teeth removed Concerning allergies he denies any allergies Concerning social history the patient says that he vapes almost daily Concerning family history he denies family history of premature coronary artery disease Principal Diagnosis acute appendicitis Discharge Exam awake/alert, no distress Gastrointestinal (Abdomen) Inspection/Auscultation: + abdominal surgical incision (c/d/i with skin glue); abdomen not distended Percussion/Palpation: + abdomen tender (expected bryan incisional discomfort) and abdomen soft Discharge Data Allergies Allergy/AdvReac Type Severity Reaction Status Date / Time No Known Allergies Allergy Unverified 11/13/17 23:51 Consultations 12/13/22 05:23 ED Decision to Admit Stat Procedures Performed Operation Date: 12/13/22 07:50 Actual Procedures p Laparoscopic Appendectomy(Not Applicable) - Sebas Anand, DO Ordered Studies 12/13/22 03:46 CT abd pelvis IV con only Stat Hospital Course (1) Acute appendicitis: This is a 27yM who presented to the [facility] ED on 12/13/22 with abdominal pain. Workup in the ED showed a WBC of [address] a/p concerning for acute appendicitis. The patient was tender to palpation in the RLQ. Patient made NPO with IVF and booked for the OR. On 12/13 the patient went to the OR with Dr. Anand for a laparoscopic appendectomy. The patient tolerated the procedure well, see operative report for full details. Post operatively the patient's diet was advanced, pain managed on prn meds, and incisions clean/dry/intact. He was admitted for overnight observation for IV abx and monitoring. On POD#1 the patient's pain was well controlled, he was able to eat without issues, and WBC downtrended to 9. He was deemed stable for discharge to home with instructions to follow up in clinic within 2 weeks. Total Time Total Time Spent Total Time Spent (In Minutes): 10 Discharge Plan Discharge Items Patient Disposition: Home - Self-Care Reason For Visit: APPY Discharge Diagnosis: laparoscopic appendectomy Condition on Discharge: Good Activity: Per Instructions section Lifting: No more than 10 pounds Bathing Comment: may shower starting 12/14/22; no soaking in tubs/pools x 2 weeks Exercise/Sports: Wait until after follow-up appointment Driving/Machine Use: no driving while taking narcotics for pain Non-emergency contact: Surgeon Call non-emergency contact if: you have any medication questions, your symptoms worsen, your pain is not controlled, your pain is unusual for you, you have a fever, your temperature is above 101.5, your wound has increased redness, your wound has increased drainage and your wound pain has increased Follow-up/Referrals: Sebas Anand DO [Surgeon] - 12/27/22 11:45 am ( follow up in clinic within 2 weeks ) PCP,NO [Primary Care Provider] - Diet: Regular Addtl Attending Provider Instructions: You have skin glue over your incisions called dermabond. you may shower with this on. It will tend to dissolve and fall off within a couple weeks. Do not pick at the skin glue Do not take plain Tylenol while you are taking the narcotic Percocet for pain. They both contain Acetaminophen and you should not exceed >3grams of Acetaminophen within a 24 hour time period -If you are not taking Percocet you may take plain Tylenol. You may also purchase Ibuprofen over the counter if needed for pain control over the next few days. Take per manufacturers instructions Pending Studies at Discharge: Yes Studies:: surgical pathology Stand-Alone Forms: My [facility], Pain - Opioid Pain Management Medications and DC Order Prescriptions: New oxycodone-acetaminophen [Percocet] 5-325 mg tablet 1 - 2 tab PO .q4-6h PRN (Reason: pain, for initial therapy, max 6 tabs per day) Qty: 12 0RF Discharge Orders: Discharge Order (Routine); Ordered 12/14/22 Ordered By: Chen Ribeiro Admission Data Admit Date/Time: 12/13/22 12:20 Attending Provider: Sebas Anand Admit Provider: Sebas Anand Primary Care Provider: PCP,NO Other Interventions: Discharge Summary Assessment (RN) Last Done: 12/14/22 10:21 Coding Level of Care Code 75085 IN/OBS DISCH 30 MIN/LESS Diagnoses Acute appendicitis K35.30 Acute appendicitis type: with localized peritonitis Appendicitis abscess presence: without abscess Appendicitis gangrene presence: unspecified whether gangrene present Appendicitis perforation presence: without perforation
== END 2022-12-14 10:57 | disposition home or self-care (01) ==
LOC: ED 03:36 → ASU 09:35 → 3W 09:35
DX: K35.30 Acute appendicitis with localized peritonitis, without perforation or gangrene; F17.210 Nicotine dependence, cigarettes, uncomplicated; R11.2 Nausea with vomiting, unspecified